=== PATIENT | female | born 2000 | race Caucasian/White ===

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

== ENCOUNTER 2022-10-26 13:47 | Emergency (ER) | payer OTHER ==
[2022-10-26 14:12] LABS: BASOPHILS # (AUTO) 0.1 10^3/uL (0.0-0.1); BASOPHILS % (AUTO) 0.6 %; EOSINOPHILS # (AUTO) 0.1 10^3/uL (0.0-0.7); EOSINOPHILS % (AUTO) 1.6 %; HCT - HEMATOCRIT 43.1 % (37.0-47.0); HGB - HEMOGLOBIN 15.1 g/dL (12.0-16.0); LYMPHOCYTES # (AUTO) 1.5 10^3/uL (1.5-3.5); LYMPHOCYTES % (AUTO) 19.8 %; MEAN CORPUSCULAR HEMOGLOBIN 31.1 pg (27.0-31.0); MEAN CORPUSCULAR VOLUME 88.7 fL (81.0-99.0); MEAN PLATELET VOLUME 8.8 fL (7.9-10.8); MONOCYTES # (AUTO) 1.2 10^3/uL (0.0-1.0); MONOCYTES % (AUTO) 15.7 %; NEUTROPHILS # (AUTO) 4.8 10^3/uL (1.5-6.6); PLT - PLATELET COUNT 225 10^3/uL (130-450); RED BLOOD COUNT 4.86 10^6/uL (4.20-5.40); WHITE BLOOD COUNT 7.7 x10^3/uL (4.8-10.8)
[2022-10-26 14:25] LABS: ALBUMIN 4.1 g/dL (3.2-5.5); ALBUMIN/GLOBULIN RATIO 1.1 (1.0-2.2); BILIRUBIN,TOTAL 0.5 mg/dL (0.2-1.0); CALCIUM 9.2 mg/dL (8.5-10.3); CREATININE 0.8 mg/dL (0.4-1.0); POTASSIUM 3.7 mmol/L (3.5-5.0); TOTAL PROTEIN 7.7 g/dL (6.7-8.2)
[2022-10-26 15:07] LABS: BILIRUBIN,URINE NEGATIVE (NEGATIVE); GLUCOSE, URINE (UA) NEGATIVE (NEGATIVE); KETONES,URINE (UA) 15 mg/dL (NEGATIVE); LEUKOCYTE ESTERASE, URINE NEGATIVE (NEGATIVE); NITRITE,URINE NEGATIVE (NEGATIVE); OCCULT BLOOD,URINE TRACE-INTA (NEGATIVE); PROTEIN,URINE NEGATIVE (NEGATIVE); UROBILINOGEN,URINE 0.2 (NORMAL) E.U./dL (NORMAL)
[2022-10-26 15:11] LABS: CLARITY,URINE CLEAR (CLEAR); HCG UR QUAL NEGATIVE
--- NOTE | 2022-10-26 17:38 | ED Physician Documentation ---
History of Present Illness - Stated complaint Stated Complaint: FEMALE - Chief complaint Chief Complaint: Abd Pain - Additonal information Additional information: 21-year-old female presents to the emergency department for evaluation of 3 weeks watery diarrhea. Reports she is having up to 10 watery stools a day. Nonbloody nonmucoid. She was seen at a local hospital on 12 October for the symptoms. At that time she been having the symptoms for 8 days. She reports she was told she had a urinary tract infection though she had no symptoms of such. She was started on Keflex and finished the course. Despite that she continues to have watery diarrhea. No fevers. No vomiting. She has some generalized abdominal cramping but nonfocal pain. No pertinent past surgical history. She takes no medications. No recent travel. She recently received Keflex but the diarrhea started well before that. She is on a well but no similar illness in family at home. She does not knowingly have a history of inflammatory bowel disease. Review of Systems Constitutional: denies: Fever Throat: reports: Reviewed and negative Cardiac: reports: Reviewed and negative Respiratory: reports: Reviewed and negative GI: reports: Diarrhea. denies: Abdominal Pain, Bloody / black stool : reports: Reviewed and negative Skin: reports: Reviewed and negative Musculoskeletal: reports: Reviewed and negative Neurologic: reports: Reviewed and negative PD PAST MEDICAL HISTORY - Past Surgical History Past Surgical History: No - Present Medications Home Medications: Ambulatory Orders Medication Instructions Recorded Confirmed Benzonatate [Tessalon Perle] 100 mg PO TID PRN #30 capsule 01/06/19 Vancomycin [Vancocin] 125 mg PO QID 10 Days #40 cap 10/26/22 - Allergies Allergies/Adverse Reactions: Allergies Allergy/AdvReac Type Severity Reaction Status Date / Time No Known Drug Allergies Allergy Verified 10/26/22 14:02 - Social History Does the pt smoke?: No Smoking Status: Never smoker Does the pt drink ETOH?: No Does the pt have substance abuse?: No - Immunizations Immunizations are current?: Yes - POLST Patient has POLST: No PD ED PE NORMAL - General General: Alert and oriented X 3, No acute distress, Well developed/nourished - HEENT HEENT: Atraumatic, Moist mucous membranes - Neck Neck: Supple, no meningeal sign, No adenopathy - Cardiac Cardiac: RRR, No murmur - Respiratory Respiratory: No respiratory distress, Clear bilaterally - Abdomen Abdomen: Normal bowel sounds, Soft, Non tender - Back Back: No CVA TTP - Derm Derm: Normal color, Warm and dry, No rash - Extremities Extremities: No deformity, No tenderness to palpate, Normal ROM s pain - Neuro Neuro: Alert and oriented X 3 Eye Opening: Spontaneous Motor: Obeys Commands Verbal: Oriented GCS Score: 15 Results - Vitals Vitals: Vital Signs - 24 hr 10/26/22 13:56 Temperature 36.7 C Heart Rate 96 Respiratory 18 Rate Blood Pressure 141/101 H O2 Saturation 100 Oxygen O2 Source Room air - Labs Labs: Laboratory Tests 10/26/22 10/26/22 10/26/22 14:08 14:08 15:02 WBC 7.7 RBC 4.86 Hgb 15.1 Hct 43.1 MCV 88.7 MCH 31.1 H MCHC 35.0 RDW 12.0 Plt Count 225 MPV 8.8 Neut # (Auto) 4.8 Lymph # (Auto) 1.5 Twiggs # (Auto) 1.2 H Eos # (Auto) 0.1 Baso # (Auto) 0.1 Absolute Nucleated RBC 0.00 Nucleated RBC % 0.0 Sodium 135 Potassium 3.7 Chloride 102 Carbon Dioxide 25 Anion Gap 8.0 BUN 9 Creatinine 0.8 Estimated GFR (MDRD) 91 Glucose 113 H Calcium 9.2 Total Bilirubin 0.5 AST 19 ALT 17 Alkaline Phosphatase 81 Total Protein 7.7 Albumin 4.1 Globulin 3.6 Albumin/Globulin Ratio 1.1 Lipase 37 Urine Color YELLOW Urine Clarity CLEAR Urine pH 6.0 Ur Specific Clayton <=1.005 Urine Protein NEGATIVE Urine Glucose (UA) NEGATIVE Urine Ketones 15 H Urine Occult Blood TRACE-INTA Urine Nitrite NEGATIVE Urine Bilirubin NEGATIVE Urine Urobilinogen 0.2 (NORMAL) Ur Leukocyte Esterase NEGATIVE Ur Microscopic Review NOT INDICATED Urine Culture Comments NOT INDICATED Urine HCG, Qual NEGATIVE PD Medical Decision Making - ED course Complexity details: reviewed results, re-evaluated patient, d/w patient ED course: This is a well-appearing 21-year-old female that presents emergency department b ecause she has been having up to 10 watery stools a day for the last 3 weeks. . No travel. Nonbloody. No fevers. No antibiotics are similar in illness and others at home. She was seen at [facility] after she had diarrhea for about 8 days and was told she had a UTI. She took Keflex without symptom improvement though she never had urinary symptoms. Here in the emergency department her abdominal exam is rather benign though she does have hyperactive bowel sounds. Her vital signs are without abnormality. Specifically no fever, tachycardia or hypotension. Her abdominal exam was benign with no significant tenderness elicited. We did obtain a CBC and electrolytes which showed no worrisome abnormalities. Specifically no leukocytosis worrisome anemia. Her electrolytes showed no worr isome dehydration and she had normal renal and liver function. We did obtain a CT of her abdomen that showed a very decompressed colon suggestive of either infectious or inflammatory colitis. Subsequently stool culture resulted positive for C. difficile. She appears to have nonsevere disease as evidenced by lack of fever leukocytosis and normal renal function. We have elected to start her on vancomycin 125 mg 4 times a day for the next 10 days. We discussed routine care and management. Emergent return precautions were discussed for failure symptoms to resolve. Departure - Departure Disposition: Home, Self Care Clinical Impression: Clostridium difficile diarrhea Condition: Stable Record reviewed to determine appropriate education?: Yes Instructions: Clostridium Difficile Infec Prescriptions: Vancomycin [Vancocin] 125 mg PO QID 10 Days #40 cap Comments: Susi came to the emergency department today because you have been having watery stools now for 3 weeks. Here in the emergency department we did obtain a CBC and electrolytes and they all look pretty normal without worrisome findings which is important because the stool that we have sent for testing shows that you have developed a type of bacteria in your intestine called C. difficile which causes fairly bad diarrhea. This is very contagious and it is important that while at home you are using only [address] proper [address] to clean toilet and surfaces in the bathroom is with bleach. In order to treat the diarrhea I am starting you on a medication called vancomycin. You will take it 4 times a day for 10 days. I would anticipate that by beginning this treatment you are starting to have reduced diarrhea over the next 3 to 5 days. If you find that the diarrhea is not improving, you devel op any fevers, you have bloody stools or worsening symptoms then you should return for reevaluation. It is important that you discuss this ED visit with your primary care provider. Anybody that you are close to or at home that develops diarrhea should be tested for C. difficile as well.
[2022-10-26] MEDS ORDERED: iohexoL-300 100 ML VIAL ONE (17:39)
[2022-10-26] MEDS ORDERED: LOPERAMIDE 2 MG CAPSULE PO STA (17:58)
[2022-10-26] MEDS ORDERED: iohexoL-300 100 ML VIAL IVP ONE (18:21)
--- NOTE | 2022-10-26 18:44 | CT Report ---
PROCEDURE: ABDOMEN/PELVIS W INDICATIONS: 3 weeks of watery diarrhea CONTRAST: 100ml omni 300 TECHNIQUE: After the administration of intravenous contrast, 5 mm thick sections acquired from the diaphragms to the symphysis. 5 mm thick coronal and sagittal reformats were acquired. For radiation dose reducti on, the following was used: automated exposure control, adjustment of mA and/or kV according to cheikh ent size. COMPARISON: None. FINDINGS: Image quality: Excellent. ABDOMEN: Lung bases: Lung bases are clear. Heart size is normal. Solid organs: Liver and spleen are normal in size and enhancement. Gallbladder is unremarkable with out calcified gallstones. Biliary system is non dilated. Pancreas enhances normally. No adrenal no dules. Kidneys demonstrate normal size and enhancement, without hydronephrosis. Peritoneum and bowel: The colon is decompressed. Allowing for the degree of decompression, findings a re suspicious for possible diffuse wall thickening and edema with a question of a degree of thumb brandy nting in the descending colon. Findings may potentially represent ulcerative colitis. No free fluid o r air. Nodes and vessels: No retroperitoneal or mesenteric adenopathy by size criteria. Aorta and inferior vena cava are normal in size. Miscellaneous: No ventral hernias. PELVIS: Genitourinary: Bladder wall thickness is normal. Miscellaneous: No inguinal hernias or adenopathy. Bones: No suspicious bony lesions. No vertebral body compression fractures. IMPRESSION: The colon is water filled and decompressed. There is probable diffuse wall thickening an d edema. The appearance is suspicious for possible ulcerative colitis. Alternatively, this can react resent infectious colitis. Reviewed by: Santhosh Parks MD on 10/26/2022 6:42 PM PST Approved by: Santhosh Parks MD on 10/26/2022 6:42 PM PST Station ID: [id number]
[2022-10-26] MEDS ORDERED: AZITHROMYCIN 250 MG TABLET PO STA (19:28)
[2022-10-26 20:02] VITALS: BP 112/64
== END 2022-10-26 20:01 | disposition home or self-care (01) ==
LOC: ED 13:47
DX: A04.72 Enterocolitis due to Clostridium difficile, not specified as recurrent (principal)
CPT/HCPCS: 36415; 74177; 80053; 81003; 81025; 83690; 85025; 87045; 87046; 87177; 87427; 87493; 99284; A9270; Q9967; 81001; 87086